=== PATIENT | female | born 1965 | race Caucasian/White ===

== ENCOUNTER → 2017-03-02 | Outpatient (CLI) | payer OTHER | LOC: RAD 11:13 | DX: M54.42 Lumbago with sciatica, left side (principal); M54.41 Lumbago with sciatica, right side; M48.06 Spinal stenosis, lumbar region; M40.56 Lordosis, unspecified, lumbar region | CPT/HCPCS: 72110; 72202 ==

== ENCOUNTER → 2017-03-15 | Outpatient (CLI) | payer OTHER | LOC: MAMO 08:21 | DX: Z12.31 Encounter for screening mammogram for malignant neoplasm of breast (principal) | CPT/HCPCS: G0202 ==

== ENCOUNTER → 2021-01-28 | Outpatient (CLI) | payer BC, OTHER ==
[2021-01-29 11:14] LABS: HBSAG SCREEN Negative (Negative); HEP A AB, IGM Negative (Negative); HEP B CORE AB, IGM Negative (Negative); HEP C VIRUS AB <0.1 (0.0-0.9)
== END ==
LOC: LAB 11:11
PROVIDERS: Emergency Medicine
DX: E05.00 Thyrotoxicosis with diffuse goiter without thyrotoxic crisis or storm (principal); Z20.5 Contact with and (suspected) exposure to viral hepatitis
CPT/HCPCS: 36415; 80074; 84439; 84443

== ENCOUNTER → 2021-08-01 | Outpatient (CLI) | payer BC | LOC: LAB 14:32 | DX: E05.00 Thyrotoxicosis with diffuse goiter without thyrotoxic crisis or storm (principal) | CPT/HCPCS: 36415; 84439; 84443 ==

== ENCOUNTER → 2022-01-30 | Outpatient (CLI) | payer BC | LOC: LAB 16:03 | DX: E05.90 Thyrotoxicosis, unspecified without thyrotoxic crisis or storm (principal); Z78.0 Asymptomatic menopausal state | CPT/HCPCS: 36415; 84439; 84443 ==